=== PATIENT | male | born 2005 | race Caucasian/White ===

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

== ENCOUNTER 2023-06-21 14:29 | Emergency (ER) | payer OTHER ==
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
--- NOTE | 2023-06-21 15:53 | XR ---
EXAMINATION TYPE: XR chest 2V DATE OF EXAM: 06/21/2023 COMPARISON: NONE HISTORY: Chest pain TECHNIQUE: Frontal and lateral views of the chest are obtained. FINDINGS: There is no focal air space opacity. No evidence for pneumothorax. No pleural effusion. The cardiac silhouette size is within normal limits. The osseous structures are grossly intact. IMPRESSION: 1. No acute cardiopulmonary process.
[2023-06-21 16:18] VITALS: BP 136/72; PULSE 86; RESP 17; TEMP 98
== END 2023-06-21 16:13 | disposition home or self-care (01) ==
LOC: EC 14:29
DX: S29.012A Strain of muscle and tendon of back wall of thorax, initial encounter (principal); V89.2XXA Person injured in unspecified motor-vehicle accident, traffic, initial encounter; Y92.411 Interstate highway as the place of occurrence of the external cause
CPT/HCPCS: 70450; 71046; 72125; 93005; 99285

== ENCOUNTER 2024-05-02 20:55 | Inpatient (IN) | payer MEDICAID, OTHER ==
--- NOTE | 2024-05-02 21:29 | ED ---
Psych HPI - General Chief Complaint: Psychiatric Symptoms Stated Complaint: Mental Health Time Seen by Provider: 05/02/24 20:57 Source: patient, EMS, RN notes reviewed, old records reviewed Mode of arrival: EMS Limitations: no limitations - History of Present Illness Initial Comments: This is a 19-year-old male to the ER for evaluation today. Today he is presenting for evaluation regards to psychiatric illness and suicidal thoughts. No drugs or alcohol underlying history of autism MD Complaint: suicidal ideation, feels depressed -: unknown Associated Psychiatric Symptoms: depression, suicidal ideation History of same: Yes Quality: constant Improves With: none Worsens With: none Associated Symptoms: denies other symptoms Treatments Prior to Arrival: placed on mental health hold If Self Harm: admits thoughts of self harm - Related Data Home Medications Medication Instructions Recorded Confirmed Spironolactone 50 mg PO BID 05/03/24 05/03/24 estradioL 2 mg PO BID 05/03/24 05/03/24 Previous Rx's Medication Instructions Recorded Divalproex ER [Depakote ER] 250 mg PO HS 30 Days #30 tab 05/08/24 Terbinafine 1% Cream [LamISIL] 1 applic TOPICAL BID each 05/08/24 Allergies Allergy/AdvReac Type Severity Reaction Status Date / Time No Known Allergies Allergy Verified 05/02/24 21:01 Review of Systems ROS Statement: Those systems with pertinent positive or pertinent negative responses have been documented in the HPI. ROS Other: All systems not noted in ROS Statement are negative. Past Medical History Past Medical History: No Reported History Additional Past Medical History / Comment(s): autism History of Any Multi-Drug Resistant Organisms: None Reported Past Surgical History: No Surgical Hx Reported Past Anesthesia/Blood Transfusion Reactions: Unable to Obtain Past Psychological History: Anxiety Smoking Status: Never smoker Past Alcohol Use History: None Reported Past Drug Use History: None Reported - Past Family History Mother History Unknown: Yes General Exam General appearance: alert, in no apparent distress Head exam: Present: atraumatic, normocephalic, normal inspection Eye exam: Present: normal appearance, PERRL, EOMI. Absent: scleral icterus, conjunctival injection, periorbital swelling ENT exam: Present: normal exam, mucous membranes moist Neck exam: Present: normal inspection. Absent: tenderness, meningismus, lymphadenopathy Respiratory exam: Present: normal lung sounds bilaterally. Absent: respiratory distress, wheezes, rales, rhonchi, stridor Cardiovascular Exam: Present: regular rate, normal rhythm, normal heart sounds. Absent: systolic murmur, diastolic murmur, rubs, gallop, clicks GI/Abdominal exam: Present: soft, normal bowel sounds. Absent: distended, ten derness, guarding, rebound, rigid Extremities exam: Present: normal inspection, full ROM, normal capillary refill. Absent: tenderness, pedal edema, joint swelling, calf tenderness Back exam: Present: normal inspection Neurological exam: Present: alert, oriented X3, CN II-XII intact Psychiatric exam: Present: normal affect, normal mood Skin exam: Present: warm, dry, intact, normal color. Absent: rash Course Vital Signs 05/02/24 20:57 Temperature 98.3 F Pulse Rate 60 Respiratory 18 Rate Blood Pressure 147/76 O2 Sat by Pulse 97 Oximetry - Reevaluation(s) Reevaluation #1: 05/02/24 21:33 Medical records reviewed Reevaluation #2: 05/02/24 21:33 Medically clear for psychiatry Reevaluation #3: Differential Mental Health Depression, anxiety, bipolar, psychosis, schizophrenia, borderline personality, situational depression, adjustment disorder, behavioral disorder, brain tumor, malingering, substance abuse, encephalopathy, medication reaction, dementia, hypothyroidism, degenerative neurologic disorder, lupus.... This is not meant to be all-inclusive list Medical Decision Making - Medical Decision Making 19 male will be admitted for psychiatric evaluation and treatment - Lab Data Result diagrams: 05/07/24 11:34 05/03/24 08:22 Lab Results 05/02/24 Range/Units 23:25 SARS-CoV-2 (PCR) Not Detected (Not Detectd) Disposition Clinical Impression: Acute anxiety, Depression, Suicidal ideation, Psychosis Disposition: TRANSFER TO PSYCH HOSP/UNIT Condition: Fair Is patient prescribed a controlled substance at d/c from ED?: No
[2024-05-03] MEDS ORDERED: MAGNESIUM HYDROXIDE 2,400 MG/30 ML CUP PO PRN (00:10)
[2024-05-03] MEDS ORDERED: HALOPERIDOL LACTATE 5 MG/ML 1 ML VIAL IM PRN (00:10)
[2024-05-03] MEDS ORDERED: MAG HYDROX/AL HYDROX/SIMETH 355 ML BOTTLE PO PRN (00:10)
[2024-05-03] MEDS ORDERED: LORazepam 2 MG/ML INJ IM PRN (00:10)
[2024-05-03] MEDS ORDERED: LORazepam 1 MG TAB PO PRN (00:10)
[2024-05-03] MEDS ORDERED: IBUPROFEN 600 MG TAB PO PRN (00:10)
[2024-05-03] MEDS ORDERED: ACETAMINOPHEN TAB 325 MG TAB PO PRN (00:10)
[2024-05-03] MEDS ORDERED: haloperidoL 5 MG TAB PO PRN (00:10)
[2024-05-03 09:28] LABS: Basophils % (A) 0 %; Eosinophils # (A) 0.1 k/uL (0-0.7); Eosinophils % (A) 2 %; HGB 14.7 gm/dL (13.0-17.5); Lymphocytes # (A) 2.5 k/uL (1.0-4.8); Lymphocytes % (A) 26 %; MCH 30.5 pg (25.0-35.0); MCHC 32.6 g/dL (31.0-37.0); MCV 93.5 fL (80.0-100.0); Mean Platelet Volume 8.1; Monocytes # (A) 0.6 k/uL (0-1.0); Monocytes % (A) 6 %; Neutrophils # (A) 5.9 k/uL (1.3-7.7); Neutrophils % (A) 64 %; Platelet Count 287 k/uL (150-450); RBC 4.81 m/uL (4.30-5.90); RDW 12.5 % (11.5-15.5); WBC 9.3 k/uL (3.8-10.6)
[2024-05-03] MEDS: NICOTINE 14MG/24HR PATCH TRANSDERM SCH (09:36)
[2024-05-03 09:56] LABS: ALT 116 U/L (4-49); AST 68 U/L (17-59); African American GFR (CKD) >90 (>60 ml/min/1.73 sqM); Albumin 4.2 g/dL (3.5-5.0); Alkaline Phosphatase 95 U/L (38-126); Anion Gap 8 mmol/L; Bilirubin, Delta 0.2 mg/dL (0.0-0.2); Bilirubin,Unconjugated 0.4 mg/dL (0.0-1.1); Blood Urea Nitrogen 10 mg/dL (9-20); Calcium 9.4 mg/dL (8.4-10.2); Carbon Dioxide 26 mmol/L (22-30); Chloride 106 mmol/L (98-107); Glucose 77 mg/dL (74-99); Non-African American GFR(CKD) >90 (>60 ml/min/1.73 sqM); Potassium 4.4 mmol/L (3.5-5.1); Sodium 140 mmol/L (137-145); Total Bilirubin 0.6 mg/dL (0.2-1.3); Total Protein 6.7 g/dL (6.3-8.2)
[2024-05-03 10:05] LABS: Appearance,Urine Clear (Clear); Bilirubin,Urine Negative (Negative); Blood,Urine Negative (Negative); Color,Urine Yellow; Glucose,Urine (UA) Negative (Negative); Ketones,Urine 2+ (Negative); Leukocyte Esterase,Urine Negative (Negative); Nitrite,Urine Negative (Negative); Protein,Urine Trace (Negative)
[2024-05-03] MEDS ORDERED: traZODone HCL 50 MG TAB PO PRN (12:02)
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
--- NOTE | 2024-05-03 14:28 | P.MDCNMH ---
History of Present Illness H&P Date: 05/03/24 This is a pleasant 19-year-old male who goes by the name of "Ester" /she who was admitted to 3 inpatient psychiatric unit for increased depression with suicidal ideations. Patient reports to have been feeling increased anxiety and stress of life stressors and inability to tolerate having increasing thoughts and suicidal thoughts. Patient follows with Dr. Emeka Slade in the outpatient setting with a past medical history of autism, ADD/ADHD. Patient was voluntarily admitted to [facility] for further psychiatric evaluation. On exam vital signs are stable, labs reviewed and CBC is 14.7 with no white count, platelets are stable at 287, sodium is 140 with a potassium of 4.4, creatinine 0.94. AST mildly elevated at 68, ALT is 116 otherwise TSH is normal, COVID was not detected and urinalysis was negative. Patient is reporting some itching and pain with redness of bilateral feet that has been ongoing and also quite odorous. Patient reports to only owning hand me down shoes that were donated to him within the community and stepmother's previous shows and he often wears them with no socks and will walk around all day with wet socks and if his socks are not washed he will continue to wear old socks. On exam appears to be athlete's foot and will initiate Lamisil. Recommend outpatient follow-up with podiatry and also discussed with the patient about daily showering, wearing only clean socks and getting new shoes and keeping them dry. REVIEW OF SYSTEMS: CONSTITUTIONAL: No fever, no malaise, no fatigue. HEENT: No recent visual problems or hearing problems. Denied any sore throat. CARDIOVASCULAR: No chest pain, orthopnea, PND, no palpitations, no syncope. PULMONARY: No shortness of breath, no cough, no hemoptysis. GASTROINTESTINAL: No diarrhea, no nausea, no vomiting, no abdominal pain. NEUROLOGICAL: No headaches, no weakness, no numbness. HEMATOLOGICAL: Denies any bleeding or petechiae. GENITOURINARY: Denies any burning micturition, frequency, or urgency. MUSCULOSKELETAL/RHEUMATOLOGICAL: Denies any joint pain, swelling, or any muscle pain. ENDOCRINE: Denies any polyuria or polydipsia. Skin: Reports redness and itching and some pain of both feet especially the bottoms of the feet The rest of the 14-point review of systems is negative. PHYSICAL EXAMINATION: GENERAL: The patient is alert and oriented x3, not in any acute distress. Well developed, well nourished. Obese, unkempt HEENT: Pupils are round and equally reacting to light. EOMI. No scleral icterus. No conjunctival pallor. Normocephalic, atraumatic. No pharyngeal erythema. No thyromegaly. CARDIOVASCULAR: S1 and S2 present. No murmurs, rubs, or gallops. PULMONARY: Chest is clear to auscultation, no wheezing or crackles. ABDOMEN: Soft, nontender, nondistended, normoactive bowel sounds. No palpable organomegaly. MUSCULOSKELETAL: No joint swelling or deformity. EXTREMITIES: No cyanosis, clubbing, or pedal edema. NEUROLOGICAL: Gross neurological examination did not reveal any focal deficits. SKIN: No rashes. Redness and irritation with tinea pedis noted to bilateral fe et and in between the toe cracks and heels bilaterally Assessment: Depression with suicidal ideation History of ADD/ADHD History of autism Tinea pedis bilaterally Obesity with a BMI 32.8 GI prophylaxis DVT prophylaxis Full code Plan: Patient is seen and evaluated on 3 [address]. psychiatric unit and has been voluntarily admitted there for increasing anxiety and depression with suicidal ideation. Patient was noted to have bilateral redness of feet and in between the cracks of the toes as well as heels likely fungal infection tinea pedis. Will initiate Lamisil and also recommend podiatry consult outpatient once discharged Discussed with the patient about showering daily and also keeping the feet and toes clean and dry. Recommend new shoes along with clean socks daily The impression and plan of care has been dictated by Nat Grossman, Nurse Practitioner as directed. Dr. Arti MD I have performed a history and examination and MDM of this patient, discussed the same with the dictator, and agree with the dictator's assessment and plan as written ,documented as a scribe. Based on total visit time, I have performed more than 50% of the visit. Past Medical History Past Medical History: No Reported History Additional Past Medical History / Comment(s): autism History of Any Multi-Drug Resistant Organisms: None Reported Past Surgical History: No Surgical Hx Reported Past Anesthesia/Blood Transfusion Reactions: No Reported Reaction Smoking Status: Never smoker - Past Family History Mother History Unknown: Yes Medications and Allergies Home Medications Medication Instructions Recorded Confirmed Type Ibuprofen [Motrin] 600 mg PO Q6HR PRN #20 tab 06/21/23 05/03/24 Rx Spironolactone 50 mg PO BID 05/03/24 05/03/24 History estradioL 2 mg PO BID 05/03/24 05/03/24 History Allergies Allergy/AdvReac Type Severity Reaction Status Date / Time No Known Allergies Allergy Verified 05/02/24 21:01 Physical Exam Vitals: Vital Signs Temp Pulse Pulse Resp BP BP Pulse Ox 05/03/24 02:20 98.0 F 69 16 135/60 99 05/02/24 20:57 98.3 F 60 18 147/76 97 Intake and Output 05/02/24 05/03/24 05/03/24 22:59 06:59 14:59 Other: Weight 91.626 kg 97.711 kg Cranial Nerve Examination - Cranial Nerves Cranial Nerve I- Olfactory: Intact Cranial Nerve II- Optic: Intact Cranial Nerve III- Oculomotor: Intact Cranial Nerve IV- Trochlear: Intact Cranial Nerve V- Trigeminal: Intact Cranial Nerve - Abducens: Intact Cranial Nerve VII- Facial: Intact Cranial Nerve VIII- Auditory: Intact Cranial Nerve IX- Glossopharyngeal: Intact Cranial Nerve X- Vagus: Intact Cranial Nerve XI- Accessory: Intact Cranial Nerve XII- Hypoglossal: Intact Results CBC & Chem 7: 05/03/24 08:22 05/03/24 08:22 Assessment and Plan Time with Patient: Less than 30
[2024-05-03] MEDS: SPIRONOLACTONE 25 MG TAB PO SCH (14:29)
[2024-05-03 18:50] LABS: Chol/HDL Ratio 4.42 Ratio; LDL Cholesterol,Calculated 116.6 mg/dL (0.0-131.0)
[2024-05-03 20:58] LABS: Urine Alcohol Negative (Negative); Urine Barbiturate Negative (Negative); Urine Cocaine Negative (Negative); Urine Methadone Negative (Negative); Urine Opiates Negative (Negative); Urine Phencyclidine Negative (Negative)
[2024-05-03] MEDS: DIVALPROEX ER 250 MG TAB.ER.24H PO SCH (23:34)
[2024-05-03] MEDS: TERBINAFINE 1% CREAM 15 GM TUBE TOPICAL SCH (23:35)
--- NOTE | 2024-05-04 12:09 | P.PN ---
Progress Note - Text Interval history: Patient was seen [wandering the hallways] and was directable and agreeable to speak with life insurance underwriter. At this time patient denies any suicidal or homicidal ideations intent or plan. Denies any Auditory or visual hallucinations. Patient denies any side effects from the medications and has been compliant with meds. Mental status exam: General Appearance: [Patient appears to be stated age is alert, directable, and cooperative.] Behavior: [No agitated behavior. Patient is calm and directable] Speech: Patient's speech is fluent and nonpressured. Mood/Affect: Mood is improving, affect is congruent and constricted. Suicidality/Homicidality: Patient denies having any suicidal or homicidal ideation intent or plan. Perceptions: Patient denies any auditory or visual hallucinations. Though content/process: [There is no evidence of any delusional thought content and thought process is linear and goal-directed.] Memory and concentration: AOX3, grossly intact for the purposes of this session Judgment and insight: improving mildly Assessment/Plan: Continue with current diagnosis. Patient continues to meet criteria for inpatient psychiatric admission for symptom stabilization and safety.[Patient will be maintained on current psychotropic medication regimen.] Monitor for medication compliance and for any psychotropic medication side effects. Will continue to monitor ongoing response to treatment. Encouraged participation in milieu.
[2024-05-05] MEDS: estradioL 1 MG TAB PO SCH (09:10)
--- NOTE | 2024-05-05 10:08 | P.PN ---
Progress Note - Text Interval history: Patient was seen [wandering the hallways] and was directable and agreeable to speak with writer editor. states that she is doing "great" At this time patient denies any suicidal or homicidal ideations intent or plan. Denies any Auditory or visual hallucinations. Patient denies any side effects from the medications and has been compliant with meds. Mental status exam: General Appearance: [Patient appears to be older thanstated age is alert, directable, and cooperative.] Behavior: [No agitated behavior. Patient is calm and directable] Speech: Patient's speech is fluent and nonpressured. Mood/Affect: Mood is improving mildly, affect is congruent and constricted. Suicidality/Homicidality: Patient denies having any suicidal or homicidal ideation intent or plan. Perceptions: Patient denies any auditory or visual hallucinations. Though content/process: [There is no evidence of any delusional thought content and thought process is linear and goal-directed.] Memory and concentration: AOX3, grossly intact for the purposes of this session Judgment and insight: improving mildly Assessment/Plan: Continue with current diagnosis. Patient continues to meet criteria for inpatient psychiatric admission for symptom stabilization and safety.[Patient will be maintained on current psychotropic medication regimen.] Monitor for medication compliance and for any psychotropic medication side effects. Will continue to monitor ongoing response to treatment. Encouraged participation in milieu.
--- NOTE | 2024-05-06 11:58 | P.PN ---
Progress Note - Text Progress Note Date: 05/06/24 Interval History: Patient was seen [wandering the hallways] and was directable and agreeable to speak with business writer in the office. Patient did note that the Depakote appears to be helping. Overall she feels "good" because she is able to be less stressed in this environment than at home. She did explain that her mother and her will not accept his transgender identity as Ester. Patient notes no ongoing depression and notes mild anxiety at this point. She denies any problems with sleep, energy, appetite and concentration. The patient will be returning home upon discharge.. At this time patient denies any suicidal or homical ideations, intent or plan. Patient denies any auditory, visual hallucinations and denies any paranoia or delusions. Patient denies any side effects from the medications and has been compliant with meds. Collateral: An attempt was made to contact the patient's mother Mary with the patient's permission telephone number [phone] Mental Status Exam: General Appearance: [Patient appears to be stated age is alert, directable, and cooperative.] Behavior: [Patient is calmly seated without any agitated behavior.] Speech: Patient's speech is fluent and nonpressured. Mood/Affect: Patient presented slightly agitated over which he feels is not getting respect at home otherwise mood is somewhat nervous and affect congruent Suicidality/Homicidality: Patient denies having any suicidal or homicidal ideation intent or plan. Perceptions: Patient denies any visual hallucinations [and denies any auditory hallucinations] Though content/process: [There is no evidence of any delusional thought content and thought process is linear and goal-directed.] Memory and concentration: AOX3, grossly intact for the purposes of this session Judgment and insight: Improving mildly Assessment Patient is upset that his family will not accept her for who she is. This may be misinterpretation from family members however patient was instructed to start writing down scenarios in order to approach this. Patient will be continued to be hospitalized we will continue to reach out to family members when available. IMPRESSIONS: mood disorder, unspecified unspecified intellectual disability PLAN: -Patient is admitted under voluntary status to MHU for stabilization of psychiatric symptoms and safety. Patient has signed adult voluntary form and medication consent and is placed in patient's chart. -Medications : Depakote 250mg qhs for mood stabilization Trazodone 50mg qhs prn for sleep. -Ativan and Haldol PRN for agitation/aggression -Patient was informed of the risks, benefits and side effects of the medication and patient verbally consented to taking the medications. -Internal Medicine consult to perform medical evaluation and physical. -NRT - nonsmoker -SW on board for discharge planning. Encourage patient to participate in groups to work on coping skills.
[2024-05-07 07:13] VITALS: RESP 16
--- NOTE | 2024-05-07 11:10 | P.PN ---
Progress Note - Text Progress Note Date: 05/07/24 Chief complaint: Mood disorder Interval History: Patient was seen [wandering the hallways] and was directable and agreeable to speak with junior technical writer in the office. Today we placed a call to the patient's mother why the patient was present. She had noted some difficulty excepting his transgender but accepts her and supports her. During the interview she continued to refer to them as "Chavez". She notes that there are no safety concerns about him returning home. Patient notes that currently she is not having any suicidal or homicidal ideations. During the session she became tearful because she felt that his mother did not listen to her. He reports her depression being 4/10 and her anxiety 6/10 with 10 being worst. She notes that his sleep, energy, appetite and concentration are normal. She continues to feel some fatigue but improvements with the Depakote. Mental Status Exam: General Appearance: [Patient appears to be stated age is alert, directable, and cooperative.] Behavior: Patient became extremely nervous while talking to his mother and and she was tearful. Speech: Patient's speech is fluent and nonpressured. Mood/Affect: Mood is improving mildly, affect is congruent and constricted. Suicidality/Homicidality: Patient denies having any suicidal or homicidal ideation intent or plan. Perceptions: Patient denies any visual hallucinations [and denies any auditory hallucinations] Though content/process: [There is no evidence of any delusional thought content and thought process is linear and goal-directed.] Memory and concentration: AOX3, grossly intact for the purposes of this session Judgment and insight: Improving mildly Assessment Patient presents with problems towards family specifically relationships between her and his mother. Some resolution was discussed including family therapy with her mother during the session. Additionally safety protocols were discussed including calling [phone]. Coping techniques were recently discussed. IMPRESSIONS: mood disorder, unspecified unspecified intellectual disability PLAN: -Patient is admitted under voluntary status to MHU for stabilization of psychiatric symptoms and safety. Patient has signed adult voluntary form and medication consent and is placed in patient's chart. -Medications : Depakote 250mg qhs for mood stabilization -Labs: Ordered liver function, CBC, and valproic acid level -Ativan and Haldol PRN for agitation/aggression -Patient was informed of the risks, benefits and side effects of the medication and patient verbally consented to taking the medications. -Internal Medicine consult to perform medical evaluation and physical. -NRT - nonsmoker -SW on board for discharge planning. Encourage patient to participate in groups to work on coping skills.
[2024-05-07 11:48] LABS: Basophils # (A) 0.1 k/uL (0-0.2); Basophils % (A) 1 %; Eosinophils # (A) 0.1 k/uL (0-0.7); Eosinophils % (A) 1 %; HCT 46.4 % (39.0-53.0); HGB 15.3 gm/dL (13.0-17.5); Lymphocytes # (A) 1.9 k/uL (1.0-4.8); Lymphocytes % (A) 20 %; MCH 30.6 pg (25.0-35.0); MCHC 32.9 g/dL (31.0-37.0); Mean Platelet Volume 7.9; Monocytes # (A) 0.6 k/uL (0-1.0); Monocytes % (A) 6 %; Neutrophils # (A) 6.7 k/uL (1.3-7.7); Neutrophils % (A) 71 %; Platelet Count 301 k/uL (150-450); RBC 4.99 m/uL (4.30-5.90); RDW 12.7 % (11.5-15.5); WBC 9.4 k/uL (3.8-10.6)
[2024-05-07 11:57] LABS: Albumin 4.3 g/dL (3.5-5.0); Bilirubin,Unconjugated 0.3 mg/dL (0.0-1.1); Total Bilirubin 0.3 mg/dL (0.2-1.3); Total Protein 7.1 g/dL (6.3-8.2)
[2024-05-07 12:02] LABS: Valproic Acid (Depakene) 25.1 ug/mL
[2024-05-08 07:07] VITALS: BP 136/71; PULSE 79; TEMP 97.6
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
== END 2024-05-08 12:34 | disposition home or self-care (01) | DRG 753 ==
LOC: EC 20:55 → 3MHU 05-03 00:07
PROVIDERS: ADMIT Psychiatry & Neurology Psychiatry; ATTEND Psychiatry & Neurology Psychiatry
DX: F39 Unspecified mood [affective] disorder (principal); F79 Unspecified intellectual disabilities; B35.3 Tinea pedis; E66.9 Obesity, unspecified; Z68.32 Body mass index [BMI] 32.0-32.9, adult; F32.A Depression, unspecified; F41.9 Anxiety disorder, unspecified; F84.0 Autistic disorder; R45.851 Suicidal ideations; Z63.8 Other specified problems related to primary support group; Z79.899 Other long term (current) drug therapy; Z11.52 Encounter for screening for COVID-19
CPT/HCPCS: 80053; 80061; 80076; 80164; 80306; 81003; 82075; 82248; 83036; 84443; 85025; 87635; 99285